=== PATIENT | female | born 1945 | race Caucasian/White ===

== ENCOUNTER → 2017-09-21 | Outpatient (CLI) | payer OTHER ==
[~2017-09-21] MED LIST: AMBIEN 5 MG TABL5 M1 PO; CYMBALTA60 MG PO; DAYPRO600 MG PO; LISINOPRIL-HCT1 EAC1 PO; MOTION RELIEF25 MG PO; NORCO 5-325 TA1 EACH PO; ZOFRAN4 MG PO
== END ==
LOC: RAD 08:57
DX: M51.36 Other intervertebral disc degeneration, lumbar region (principal); M41.86 Other forms of scoliosis, lumbar region

== ENCOUNTER → 2018-06-05 | Outpatient (CLI) | payer OTHER ==
--- NOTE | ~2018-06-05 | SLE ---
[facility] [place] [address] [address] [place] [address] POLYSOMNOGRAPHY STUDY Name: LINDSEYHEATHER Nancy Room #: REG [facility]#: [id number] Admission: 06/05/18 Attend Phys: Jose Swartz MD Discharge: Date of : 41 Report #: [id number] THIS REPORT FOR: //name// CC: Hiral Swartz MD DATE OF SERVICE: 06/05/2018 ATTENDING PHYSICIAN: Dr. Jose Swartz. The patient is a 72-year-old who weighs 254 pounds and is 62 inches tall with a BMI of 46.5. The patient's Mosquero score was 8. The patient had a home sleep study and was found to have a moderate sleep apnea at an AHI of 19.3 per hour. The patient underwent an in-lab CPAP titration study. Performed at [facility]. During the night study, the patient spent 496 minutes in bed and slept for 351 minutes with a sleep efficiency of 71%. Sleep latency was 30.7 minutes with a REM latency of 245 minutes. Overall, sleep architecture showed normal stage 1 sleep, increased stage 2 sleep, which was 95% of total sleep time. Absent N3 sleep and significantly reduced REM sleep, which was only 1% of the total sleep time. During the night of study, the patient's EKG monitoring revealed an average heart rate of 86 beats per minute. It was normal sinus rhythm. There were occasional PVCs and few bigeminy seen. There was a 13-beat run of narrow complex tachycardia observed. PLMS were seen at an index of 17 per hour and 3 per hour caused EEG arousals. The patient was started on CPAP at a pressure of 4 cm water and titrated up to 9 cm water. At the final pressure, the patient slept for 48 minutes. The patient had no REM sleep, but supine sleep was observed. The patient's AHI was reduced to 2.5 per hour and oxygen saturation remained above 90%. IMPRESSION: 1. Moderate sleep apnea diagnosed by home sleep study. 2. Mild PLMS which does not need to be treated unless the patient has symptoms of restless legs during the day. 3. Abnormal EKG with a 13-beat narrow complex tachycardia. Consider Cardiology followup. RECOMMENDATIONS: 1. CPAP at 9 cm water completely eliminated the patient's sleep apnea and should be used on a nightly basis. [facility] [address] [place] [address] POLYSOMNOGRAPHY STUDY Name: HEATHER PORTILLO Room #: REG CLE[facility]ardo [facility]cleod#: [id number] Admission: 06/05/18 Attend Phys: Jose Swartz MD Discharge: Date of : 41 Report #: [id number] 2. Follow up in 4-6 weeks to assess compliance with CPAP and to document clinical improvement. 3. Weight loss is strongly advised. 4. Avoid AOC DIRECTOR COMBAT PLANS OFFICER depressants. 5. Cautioned regarding driving until symptoms of sleep apnea resolve with the use of CPAP. 6. Cardiology followup regarding abnormal EKG. <ELECTRONICALLY SIGNED> By: Fabian Jamil MD 06/06/18 1710 1301 1322 Fabian Jamil MD /nt
== END ==
LOC: SLEEPLAB 18:16
DX: G47.30 Sleep apnea, unspecified (principal); R94.31 Abnormal electrocardiogram [ECG] [EKG]; E66.09 Other obesity due to excess calories

== ENCOUNTER → 2019-01-04 | Outpatient (CLI) | payer OTHER ==
--- NOTE | 2019-01-04 14:04 | NUR ---
1300-PT HAD A LINQ PLACEMENT TODAY BY WITHOUT ANY COMPLICATIONS OR DIFFICULTY. [facility] REP IN AND EXPLAINED HOME MONITOR TO PT AND ANSWERED ALL QUESTIONS. FOLLOW UP SCHEDULED WITH XU,VIBRATION ENGINEER IN 7-10 DAYS AND IN 4 WEEKS. PT DC'D HOME AND ALL QUESTIONS ANSWERED.
--- NOTE | 2019-01-04 15:36 | LINQ ---
[facility] [address] [place] [address] [employer] PROCEDURE REPORT Name: HEATHER PORTILLO [facility] [id number] ������������� Admission: 01/04/19 ������������� Attend Phys: Mark Santana Discharge: ��� ������������� ��� Date of : 41 Date of Service: 01/04/19 1536 �� Report #: [id number] �������� ��������������������������������������������[id number] THIS REPORT FOR: //name// APPROVED REPORT Study performed: 01/04/2019 13:38:04 Patient Status: Out-Patient Room #: Event Personnel: Mark Meier MD Exam: Loop Recorder Implant Indications: Palpitations Implanted Devices: [employer]: Confirm Rx; Reference # [id number]; SN: [id number]; Expiration: 2020-03-29 Procedure The patient underwent informed consent. We discussed the details of the procedure including the risks, which include, but not limited to bleeding, infection, vascular damage, cardiac perforation, and pneumothorax. After informed consent was obtained the patient brought to the cardiac catheterization laboratory prep and hold. The left chest was prepped and draped in usual sterile manner. Using 1% lidocaine the proposed incision site was instilled and lidocaine was carried forth throughout the proposed pocket tract. Utilizing an 11 blade a small incision was made. Status post blunt and sharp dissection a pocket was generated. At this point in time the enclosed deployment total was utilized and deployed device subcutaneously. 3 simple interrupted sutures were then placed in the subcutaneous tissue to seal the subcutaneous tissues. The skin was then closed with a running subcuticular 30 absorbable suture. Steri-Strips 4 x 4 OpSite were utilized. No complications. Conclusion 1. Successful insertion of a [employer] implantable loop recorder Recommendations 1. Routine post implantation protocol ��������������������������������������������� <ELECTRONICALLY SIGNED> ���������������������������������������� By: Mark Meier MD ��������������������������������������������� 01/04/19 1536 1536 1536 Mark Meier MD /INF
== END | disposition home or self-care (01) ==
LOC: CATH 06:22
DX: R00.2 Palpitations (principal); Z88.8 Allergy status to other drugs, medicaments and biological substances; Z79.899 Other long term (current) drug therapy; Z79.891 Long term (current) use of opiate analgesic

== ENCOUNTER → 2019-05-05 | Outpatient (CLI) | payer OTHER | LOC: MRI 09:36 | DX: M47.816 Spondylosis without myelopathy or radiculopathy, lumbar region (principal); M47.815 Spondylosis without myelopathy or radiculopathy, thoracolumbar region; M48.061 Spinal stenosis, lumbar region without neurogenic claudication; M51.26 Other intervertebral disc displacement, lumbar region; M51.27 Other intervertebral disc displacement, lumbosacral region; M51.35 Other intervertebral disc degeneration, thoracolumbar region; M51.24 Other intervertebral disc displacement, thoracic region; M51.25 Other intervertebral disc displacement, thoracolumbar region; M41.86 Other forms of scoliosis, lumbar region; E78.2 Mixed hyperlipidemia; M17.0 Bilateral primary osteoarthritis of knee; R29.898 Other symptoms and signs involving the musculoskeletal system; R20.2 Paresthesia of skin; I10 Essential (primary) hypertension; M79.604 Pain in right leg; M79.605 Pain in left leg; M48.07 Spinal stenosis, lumbosacral region; Z88.8 Allergy status to other drugs, medicaments and biological substances; Z88.2 Allergy status to sulfonamides; Z90.49 Acquired absence of other specified parts of digestive tract; Z90.710 Acquired absence of both cervix and uterus ==

== ENCOUNTER → 2019-05-17 | Outpatient (CLI) | payer OTHER ==
[~2019-05-17] VITALS: Ht 157.5 cm; Wt 127.0 kg
[~2019-05-17] MED LIST changes: +AMLODIPINE BESY10 MG PO; +DIAZEPAM 5 MG5 M1 PO; +FISH OIL 1,001000 M2 PO; +LOVASTATIN 20 M20 MG PO; +NITROGLYCERIN0.4 MG SUBLING; +OMEPRAZOLE20 M2 PO
--- NOTE | ~2019-05-17 | HPC ---
[facility] [address] [place] [address] PAIN MANAGEMENT CONSULTATION Name: LINDSEYHEATHER A Room #: REG INA Harsha#: [id number] Admission: 05/17/19 Attend Phys: Larisa Rubio MD Discharge: Date of : 43 Report #: [id number] THIS REPORT FOR: //name// CC: Hiral Rubio DATE OF SERVICE: 05/17/2019 CHIEF COMPLAINT: Pain in the back that radiates down into the right hip and low back area. HISTORY: The patient is a 73-year-old female who has been referred to the pain clinic for evaluation of back and leg pain. The patient started to note some worsening of her pain in early April. She is having pain that is radiating down her low back into the right hip. There is a burning component to it. She describes tenderness. It is scaled to be 10/10 at this juncture. Notes that the pain is exacerbated by all, pretty much everything. Activities of daily living have been significantly curtailed. Notes that the pain improves somewhat if she lies down. Over the last 2 months, she has noted worsening of her pain. Did have some problems about 20 years ago. Her fell into the flower bed. She assisted in getting him out that continue to exacerbate her discomfort. She has been trying to use Tylenol medication with no long-term benefit. She has a history of fibromyalgia. Has in the past been engaged in water aerobics. She does see a chiropractor on a weekly basis. She has not had any long-term benefit from this. Has been using ice on her back in the day. Has used ice to her back and hip area. Does feel that she has some arthritic changes in the low back as well. Feels that there is a swelling involving her right hip. She finds walking more problematic. She is unable to go to the grocery store or engage in other daily activities. Using the vacuum commercial or institutional cleaner is significantly problematic. Has been using sleeping pills to help with the pain and improve her wrist. Notes that she has increased pain when she is leaning, bending, and turning. Rates her pain as a 10/10 at this point. Feels that it is continuous, burning as well as tender. Improves when she lies down. ALLERGIES: PARAFON FORTE. CURRENT MEDICATIONS: Omeprazole 20 mg, nitroglycerin sublingual p.r.n., Mevacor 20 mg, fish oil 1000 mg, diazepam 5 mg p.r.n., anxiety/insomnia, amlodipine 10 mg, meclizine 25 mg q.8 hours motion relief, zolpidem 5 mg at bedtime, takes 10 mg; Cymbalta 60 mg, takes 90 mg; lisinopril/hydrochlorothiazide 20/12.5 daily. PAST MEDICAL HISTORY: Hypertension, joint disease, anxiety, GERD, and hypercholesterolemia. PAST SURGICAL HISTORY: Cholecystectomy in 2000, back surgery in [address]. [address] [address] PAIN MANAGEMENT CONSULTATION Name: HEATHER PORTILLO Room #: REG INA Mcleod#: [id number] Admission: 05/17/19 Attend Phys: Larisa Rubio MD Discharge: Date of : 41 Report #: [id number] SOCIAL HISTORY: She is retired. REVIEW OF SYSTEMS: Shortness of breath when lying down, palpitations, generally good health, depression. PAIN CLINIC ASSESSMENT AND PQRS: 1. History of osteoarthritis. The patient has had back surgery and has bilateral knee problems. 2. The patient is not being treated for rheumatoid arthritis. 3. Height 5 feet 2 inches, weight 280 pounds, BMI is 51.2. 4. Vital Signs: Blood pressure 167/90, pulse 99, respiratory rate 16, room air saturation 97%. 5. Pain intensity, 06/22. 6. Fall history. The patient has not fallen in the last 3 months. 7. Blood thinner. The patient is not on a blood thinning medication. 8. Hypertension. The patient is being treated for hypertension. 9. Opioids greater than 6 weeks. The patient is not on an opioid regimen. 10. Risk assessment tool, low for opioid use. 11. Functional assessment tool, . 12. Recreational drug use, the patient denies. 13. Tobacco: The patient has never smoked. 14. Alcohol. The patient denies frequent use of alcoholic beverages. PHYSICAL EXAMINATION: GENERAL: The patient is a well-developed, somewhat obese white female. Appears her stated age. She is alert and oriented x 3. Her affect is appropriate. Speech is fluent. HEENT: Normocephalic, atraumatic. Extraocular eye muscles intact. Sclerae nonicteric. Mucous membranes are moist. NECK: Without adenopathy. HEART: Regular rate. ABDOMEN: Protuberant. Bowel sounds present. EXTREMITIES: Upper extremity muscle strength judged to be 5/5 for the major muscle groups in the upper extremity. The patient without significant scoliosis, kyphosis, or lordosis. Has pain, which increases with forward bending to about 90 degrees to touch her toes. Left and right leaning cause some increased pain and discomfort in the low back area with pain down into her buttocks bilaterally. Left and right lateral rotation, lumbar extension all cause some increased pain in the low back area with pain down into the area of the buttocks. Upper extremity muscle strength judged to be 5/5 for the major muscle groups. The patient has a number of bruises on her forearms, somewhat consistent with as one would see with chronic steroid usage. Deep tendon reflexes are +2 at the biceps, absent at the ankles bilaterally, trace ankle jerks. LABORATORY DATA: MRI of the lumbar spine dated 05/05/2019, chronic low back [facility] [address] [place] [address] PAIN MANAGEMENT CONSULTATION Name: HEATHER PORTILLO Room #: [facility] [id number] Admission: 05/17/19 Attend Phys: Larisa Rubio MD Discharge: Date of : 41 Report #: [id number] pain and bilateral leg weakness. 1. At L1-L2, there is a generalized disk bulge, which is eccentric toward the right. Moderate to severe hypertrophic posterior facet degenerative changes present. The AP diameter of the thecal sac remains 10 mm. There is right greater than left mild bilateral neural foraminal narrowing. 2. L2-L3, there is a generalized disk bulge and severe hypertrophic facet degenerative changes and ligamentum flavum hypertrophy. This narrows the AP diameter of the thecal sac to 7 mm consistent with severe central spinal stenosis. There is mild bilateral neural foraminal narrowing, worse on the left as compared to the right. 3. L3-L4, there is a generalized disk bulge with severe hypertrophic posterior facet degenerative changes and ligamentum flavum hypertrophy. AP diameter of the thecal sac narrows to 9 mm consistent with mild spinal stenosis. There is mild bilateral recess narrowing, slightly worse on the left. There is mild left foraminal narrowing. 4. At L4-L5, there is generalized disk bulge and severe hypertrophic posterior facet degenerative changes. Right greater than left recess narrowing is present. The AP diameter of the thecal sac remains 10 mm. There is severe right and no left neural foraminal narrowing. 5. L5-S1. There is a generalized disk bulge with broad-based central and left paracentral disk protrusion and associated annular tear. This causes significant mass effect on the descending left S1 nerve root. The AP diameter of the thecal sac remains 13. 6. There is moderate bilateral significant disease present at L1-L2, L2-L3, L3-L4 and L5-S1. IMPRESSION: 1. Lumbar radiculopathy with L5-S1 dermatomal distribution with pain radiating down into the buttocks, left and right. 2. Coronary artery disease. 3. Hypertension. 4. Joint disease. 5. Anxiety. 6. Gastroesophageal reflux disease. 7. Hypercholesterolemia. RECOMMENDATIONS: We discussed treatment options with the patient. A model was used to indicate the area of probable pathology. The patient's MRI was reviewed. The patient does have significant pressure on the L5-S1 nerve root. She is having pain that is radiating down the L5-S1 dermatomal distribution on the right. At this point, we will proceed with an epidural steroid injection. The possible complications of the procedure were discussed. They were reviewed. They were explained. The possible complications, which could include but are not limited to infection, worsening of pain, no improvement in pain, nerve damage, bleeding were reviewed and the patient elects to proceed. The patient will return to the pain clinic at which time she will then undergo an epidural [address] [address] PAIN MANAGEMENT CONSULTATION Name: HEATHER PORTILLO Room #: REG INA M[facility]od#: [id number] Admission: 05/17/19 Attend Phys: Larisa Rubio MD Discharge: Date of : 41 Report #: [id number] steroid injection to help control the spinal stenosis symptomatology as well as lumbar radicular pain in the L5-S1 dermatomal distribution. We would like to thank you for letting us participate in her care. We hope she continues to improve. By: [id number] [id number] Larisa Rubio MD /HAI
[2019-05-17 14:24] VITALS: BP 167/90
--- NOTE | 2019-05-17 15:00 | NUR ---
Pain Clinic Assessment: 1. History of Osteoarthritis: BACK BILAT KNEES History of Rheumatoid Arthritis: 2. Height: 5 ft. 02 in. 157.5 cm. Weight: 280.0 lb. oz. 127.008 kg. Patient's BMI: 51.2 3. Vital Signs: BP: 167/90 Pulse: 99 Resp: 16 Temp: 02 Sat: 97 ECG Mon: 4. Pain Intensity: 10 5. Fall Risk: Dizziness: N Needs help standing or walking: N Fallen in the last 3 months: N Fall risk comments: 6. Patient on Blood Thinner: None 7. History of Hypertension: Y 8. Opioid Therapy greater than 6 weeks: Opiate Contract Signed: 9. Risk Assessment Tool Provided: 10. Functional Assessment Tool: 11. Recreational Drug Use: Never Drug Type: Tobacco Use: Never Smoker Tobacco Type: Amount or Packs/day: How Many Years: Alcohol Use: No Frequency: Quant:
== END ==
LOC: PAIN 06:58
DX: M54.16 Radiculopathy, lumbar region (principal); I10 Essential (primary) hypertension; F41.9 Anxiety disorder, unspecified; K21.9 Gastro-esophageal reflux disease without esophagitis; E78.00 Pure hypercholesterolemia, unspecified; I25.10 Atherosclerotic heart disease of native coronary artery without angina pectoris; Z79.899 Other long term (current) drug therapy; Z90.49 Acquired absence of other specified parts of digestive tract

== ENCOUNTER → 2019-05-26 | Outpatient (CLI) | payer OTHER ==
[~2019-05-26] VITALS: Ht 152.4 cm; Wt 119.3 kg
[~2019-05-26] MED LIST changes: +HYDROCODON-ACE1 EAC7 PO
--- NOTE | ~2019-05-26 | HPC ---
[facility] [address] [address] PAIN MANAGEMENT CONSULTATION Name: HEATHER PORTILLO Nancy Room #: REG FANIEverardo Mcleod#: [id number] Admission: 05/26/19 ������������������ Attend Phys: Larisa Rubio MD Discharge: ������������������ Date of : 41 Report #: [id number] THIS REPORT FOR: //name// CC: Hiral Rubio DATE OF SERVICE: 05/26/2019 CHIEF COMPLAINT: Pain that radiates down to the back and hip. HISTORY: The patient is a 73-year-old female who has been referred to the Pain Clinic for evaluation. The patient has a history of pain in the low back area. It radiates down into her leg. She has noticed worsening of her pain since 04/2019. She has a burning component. Rates it as a 10/10 at this point. Activities of daily living have increased her discomfort. Pain improves when she lies down. Pain is worsened with other activities. Did have some similar problems about 20 years ago. Recently, her fell in a flower bed. She is assisted in getting on the flower bed. After that, she noted some increased pain and discomfort. She also has a history of fibromyalgia. She has in the past undergone chiropractic treatment. Has used some water aerobics. Does have some arthritic changes in her low back. She has returned today for an epidural steroid injection. ALLERGIES: PARAFON FORTE. CURRENT MEDICATIONS: Omeprazole 20 mg, nitroglycerin sublingual p.r.n., Mevacor 20 mg, fish oil 1000 mg, diltiazem 5 mg, anxiety/insomnia, amlodipine 10 mg, meclizine 25 mg q. 8 hours p.r.n., zolpidem 5 mg at bedtime, 10 mg total was taken, Cymbalta 60 mg, takes 90 mg total, lisinopril/hydrochlorothiazide 20/12.5 daily. PAIN CLINIC ASSESSMENT/PQRS: 1. The patient has a history of osteoarthritis. She has had back surgery and has had bilateral knee replacements. She is not being treated for rheumatoid arthritis. 2. Height 5 feet 0 inches, weight 263 pounds, BMI is 51.4. 3. Vital Signs: Blood pressure 110/84, pulse 110, respiratory rate 18, room air saturation 98%. 4. Pain intensity, 06/22. 5. Fall history: The patient has not fallen since we saw her last. 6. Blood thinner. The patient is not on a blood thinning medication. 7. Hypertension. The patient is being treated for hypertension. 8. Opioids greater than 6 weeks. The patient receives medications from her primary physician. 9. Risk assessment tool, low for opioid use. 10. Functional assessment tool, . [address] [address] PAIN MANAGEMENT CONSULTATION Name: HEATHER PORTILLO [facility] [id number] Admission: 05/26/19 ������������������ Attend Phys: Larisa Rubio MD Discharge: ������������������ Date of : 41 Report #: [id number] 11. Recreational drug use. The patient denies. 12. Tobacco: The patient has never smoked. 13. Alcohol. The patient denies frequent alcohol use. PHYSICAL EXAMINATION: GENERAL: The patient is a well-developed, well-nourished, obese white female, appears her stated age. She is alert and oriented x 3. Her affect is appropriate. Speech is fluent. HEENT: Normocephalic, atraumatic. Extraocular eye muscles intact. Sclerae nonicteric. Mucous membranes are moist. NECK: Without adenopathy or JVD. HEART: Regular rate. ABDOMEN: Protuberant. Bowel sounds present. EXTREMITIES: Upper extremity muscle strength judged to be 5/5 for the major muscle groups in the upper extremity. The patient is without significant scoliosis, kyphosis or lordosis. The patient has forward lean with walking. Lower extremity muscle strength judged to be 5/5 for the major muscle groups in the lower extremity. The patient has a number of bruises on her forearm. They seem somewhat consistent with chronic steroid use. Deep tendon reflexes +2 in biceps. 1. Lumbar radiculopathy with L5-S1 dermatomal distribution of pain radiating down to the buttocks, left as well as right leg. 2. Coronary artery disease. 3. Hypertension. 4. Joint disease. 5. Anxiety. 6. Gastroesophageal reflux. 7. Hypercholesterolemia. RECOMMENDATIONS: We discussed treatment options with the patient. Risks and benefits of an epidural steroid injection were discussed. They include but are not limited to infection, worsening pain, no improvement in pain, nerve trauma and the patient elects to proceed. PROCEDURE NOTE: The patient was taken to the procedure area. She was then assisted in getting on examination table. Her back was sterilely prepped with a Betadine solution. A 0.25% bupivacaine was infiltrated in the midline at the L5-S1 interspace. This area had been sterilely prepped with Betadine. A 25-gauge needle was then used to infiltrate this area with 0.25% bupivacaine. After the area had been anesthetized, fluoroscopy using an anterior, posterior as well as lateral viewing were implemented. A 17-gauge Tuohy was advanced to the epidural space. There was no CSF, heme or paresthesia. Total of 80 mg Depo-Medrol, 40 mg triamcinolone and 2 mL of 0.25% bupivacaine was injected. The patient's pain decreased from 10-1 at the time of discharge. Total of about 30 seconds fluoroscopy time was used. [facility] [address] [address] PAIN MANAGEMENT CONSULTATION Name: HEATHER PORTILLO Room #: REG [facility]#: [id number] Admission: 05/26/19 ������������������ Attend Phys: Larisa Rubio MD Discharge: ������������������ Date of : 41 Report #: [id number] We would like to thank you for letting us participate in her care. We hope she continues to improve. ��������������������������������������������� ���������������������������������������� By: ��������������������������������������������� 1345 1729 Larisa Rubio MD /nt
[2019-05-26 12:45] VITALS: BP 110/84
--- NOTE | 2019-05-26 12:49 | NUR ---
Pain Clinic Assessment: 1. History of Osteoarthritis: BACK BILAT KNEES History of Rheumatoid Arthritis: Not Applicable 2. Height: 5 ft. 0 in. 152.4 cm. Weight: 263.0 lb. oz. 119.296 kg. Patient's BMI: 51.4 3. Vital Signs: BP: 110/84 Pulse: 110 Resp: 18 Temp: 02 Sat: 98 ECG Mon: 4. Pain Intensity: 10 5. Fall Risk: Dizziness: N Needs help standing or walking: N Fallen in the last 3 months: N Fall risk comments: 6. Patient on Blood Thinner: None 7. History of Hypertension: Y 8. Opioid Therapy greater than 6 weeks: Opiate Contract Signed: 9. Risk Assessment Tool Provided: LOW-1 10. Functional Assessment Tool: 11. Recreational Drug Use: Never Drug Type: Tobacco Use: Never Smoker Tobacco Type: Amount or Packs/day: How Many Years: Alcohol Use: No Frequency: Quant:
== END | disposition home or self-care (01) ==
LOC: PAIN 06:49
DX: M54.16 Radiculopathy, lumbar region (principal); G89.29 Other chronic pain; Z88.8 Allergy status to other drugs, medicaments and biological substances; Z79.899 Other long term (current) drug therapy

== ENCOUNTER → 2019-06-28 | Outpatient (CLI) | payer OTHER ==
[~2019-06-28] VITALS: Ht 157.5 cm; Wt 121.0 kg
[~2019-06-28] MED LIST changes: +DOXEPIN 10 MG C10 M1 PO; +MAG-OXIDE400 MG PO; +MAGNESIUM250 M1 PO; +VALIUM2 MG PO
[2019-06-28 12:51] VITALS: BP 173/4
--- NOTE | 2019-06-28 13:11 | NUR ---
Pain Clinic Assessment: 1. History of Osteoarthritis: BACK BILAT KNEES History of Rheumatoid Arthritis: Not Applicable 2. Height: 5 ft. 2 in. 157.5 cm. Weight: 266.8 lb. oz. 121.020 kg. Patient's BMI: 48.8 3. Vital Signs: BP: 173/4 Pulse: 116 Resp: 20 Temp: 02 Sat: 99 ECG Mon: 4. Pain Intensity: 8 5. Fall Risk: Dizziness: N Needs help standing or walking: N Fallen in the last 3 months: N Fall risk comments: 6. Patient on Blood Thinner: None 7. History of Hypertension: Y 8. Opioid Therapy greater than 6 weeks: N Opiate Contract Signed: 9. Risk Assessment Tool Provided: LOW-1 10. Functional Assessment Tool: 11. Recreational Drug Use: Never Drug Type: Tobacco Use: Never Smoker Tobacco Type: Amount or Packs/day: How Many Years: Alcohol Use: No Frequency: Quant:
--- NOTE | 2019-07-21 08:14 | HPC ---
[facility] [address] [place] [address] PAIN MANAGEMENT CONSULTATION Name: HEATHER PORTILLO Nancy Room #: REG INA Harsha#: [id number] Admission: 06/28/19 Attend Phys: Larisa Rubio MD Discharge: Date of : 43 Report #: [id number] THIS REPORT FOR: //name// CC: Hiral Rubio DATE OF SERVICE: 06/28/2019 CHIEF COMPLAINT: Low back that is going down into both legs. HISTORY: The patient is a 73-year-old female who has been seen in the pain clinic. She has had problems with her pain since 04/2019. She complains of some pain that radiates down into her right leg and into her foot. Also, she has pain in the left leg, but the discomfort stops at her knee. She feels that because of some of the numbness and unsteadiness in her gait. She underwent an epidural steroid injection at the last visit. She returns today and feels that her pain continues to be problematic in spite of having undergone an epidural injection. Rates her pain as an 8/10. As you may recall, her fell in the floor bed. Pain worsened after her assisting him and pulling him to help get him out of the floor bed. She has a history of fibromyalgia. She has undergone chiropractic treatments. ALLERGIES: PARAFON FORTE. CURRENT MEDICATIONS: Omeprazole 20 mg, nitroglycerin sublingual p.r.n., Mevacor 20 mg, fish oil 1000 mg, diltiazem 5 mg, anxiety/insomnia; amlodipine 10 mg, meclizine 25 mg q. 8 hours, zolpidem 5 mg at bedtime, 10 mg total, Cymbalta 90 mg total and lisinopril/hydrochlorothiazide 20/12.5 mg daily. PAIN CLINIC ASSESSMENT AND PQRS: 1. The patient has a history of osteoarthritis. She has had back surgery and has had bilateral knee replacements. She is not being treated for rheumatoid arthritis. 2. Height 5 feet 8 inches, weight 266 pounds, BMI is 48.8. 3. Vital Signs: Blood pressure 173/74, heart rate 114, respiratory rate 20, room air saturation is 99%. 4. Pain intensity 04/22. 5. Fall history: The patient has not fallen in the last 3 months. 6. Blood thinner. The patient is not on a blood thinning medication. 7. Hypertension. The patient is being treated for hypertension. 8. Opioids greater than 6 weeks. The patient received medication from her primary physician. 9. Risk assessment tool, low for opioid use. 10. Functional assessment tool . 11. Recreational drug use. The patient denies. 12. Tobacco: The patient has never smoked. [address] [address] PAIN MANAGEMENT CONSULTATION Name: HEATHER PORTILLO Room #: REG CLI Harsha#: [id number] Admission: 06/28/19 Attend Phys: Larisa Rubio MD Discharge: Date of : 43 Report #: [id number] 13. Alcohol. The patient denies frequent use of alcoholic beverages. PHYSICAL EXAMINATION: GENERAL: The patient is a well-developed, well-nourished, obese white female, appears her stated age. She is alert and oriented x 3. Her affect is appropriate. Speech is fluent. HEENT: Normocephalic, atraumatic. Extraocular eye muscles intact. Sclerae nonicteric. Mucous membranes are moist. NECK: Without adenopathy or JVD. HEART: Regular rate. ABDOMEN: Protuberant. Bowel sounds present. EXTREMITIES: Upper extremity muscle strength judged to be 5/5 for the major muscle groups in the upper extremity. The patient without significant scoliosis, kyphosis or lordosis. The patient lower extremity muscle strength judged to be 5-/5 for the major muscle groups in the lower extremity. She has low back pain with pain that radiates down into both legs. This pain is in the L5-S1 dermatomal distribution on the left side as well as pain in the right leg. IMPRESSION: 1. Lumbar radiculopathy with L5-S1 dermatomal distribution with pain radiating down into the buttocks, left as well as the right leg. 2. Coronary artery disease. 3. Hypertension. 4. Joint disease. 5. Anxiety. 6. Gastroesophageal reflux. 7. Hypercholesterolemia. RECOMMENDATIONS: We discussed the treatment options with the patient. The patient feels that she got less than 50% improvement after the last injection. She continues to note pain and discomfort in the low back area. She has history of fibromyalgia. Has pain in the low back down into her hips. She has some perception of swelling in her right hip. We explained to the patient that another epidural steroid injection could prove beneficial. At this point, she declines another injection and may consider one in the future. We will have the patient follow up with her primary physician. We would like to thank you for letting us participate in her care. We hope she continues to improve. <ELECTRONICALLY SIGNED> By: Larisa Rubio MD 07/21/19 0814 1639 1653 Larisa Rubio MD /nt
== END ==
LOC: PAIN 07:13
DX: M54.16 Radiculopathy, lumbar region (principal); I25.10 Atherosclerotic heart disease of native coronary artery without angina pectoris; I10 Essential (primary) hypertension; F41.9 Anxiety disorder, unspecified; K21.9 Gastro-esophageal reflux disease without esophagitis; E78.00 Pure hypercholesterolemia, unspecified

== ENCOUNTER 2019-07-27 08:19 | Emergency (ER) | payer OTHER ==
[~2019-07-27] VITALS: Ht 152.4 cm; Wt 113.4 kg
[~2019-07-27 08:19] MED LIST changes: -DOXEPIN 10 MG C10 M1 PO; -MAG-OXIDE400 MG PO; -MAGNESIUM250 M1 PO; -VALIUM2 MG PO
[2019-07-27 08:51] LABS: HEMATOCRIT 44.5 % (37.0-47.0); HEMOGLOBIN 14.9 gm/dL (12.0-15.0); MCH 31.3 pg (26.0-34.0); MCHC 33.6 g/dL (28.0-37.0); MCV 93.3 fL (80.0-100.0); RBC 4.77 mil/uL (4.20-5.00); RDW 14.4 % (10.5-14.5); WBC 14.4 thou/uL (4.0-11.0)
[2019-07-27 09:00] LABS: ANION GAP 16 mmol/L (7-16); BUN 14 mg/dL (7-18); CHLORIDE 101 mmol/L (98-107); CO2 20 mmol/L (21-32); CREATININE 0.9 mg/dL (0.6-1.0); GLUCOSE 215 mg/dL (74-106); SODIUM 137 mmol/L (136-145)
[2019-07-27 09:01] LABS: POTASSIUM 3.6 mmol/L (3.5-5.1)
[2019-07-27 09:07] LABS: D-DIMER 1.08 ug/mLFEU (0.19-0.50); PROTIME 9.9 Seconds (9.3-11.4)
[2019-07-27 09:10] LABS: ALBUMIN 3.6 g/dL (3.4-5.0); MAGNESIUM 1.4 mg/dL (1.8-2.4); SGOT 34 U/L (15-37); SGPT 29 U/L (30-65); TOTAL BILIRUBIN 0.7 mg/dL (<0.1-1.0); TOTAL PROTEIN 6.4 g/dL (6.4-8.2); TROPONIN-I <0.06 ng/mL (<0.06)
[2019-07-27 09:41] LABS: ABSOLUTE NEUTROPHILS 8.9 thou/uL (1.4-8.2); PLATELET COUNT 294 thou/uL (150-400); PLATELET ESTIMATE NORMAL
[2019-07-27] MEDS ORDERED: DOXEPIN 10 MG C10 M1 PO (09:44)
[2019-07-27] MEDS ORDERED: MAGNESIUM250 M1 PO (10:00)
[2019-07-27 10:48] LABS: URINE BILIRUBIN NEGATIVE (Negative); URINE BLOOD NEGATIVE (Negative); URINE CLARITY CLEAR; URINE COLOR YELLOW; URINE GLUCOSE-RANDOM* NEGATIVE (Negative); URINE KETONES NEGATIVE (Negative); URINE LEUKOCYTES-REFLEX NEGATIVE (Negative); URINE NITRITE-REFLEX NEGATIVE (Negative); URINE PROTEIN (DIPSTICK) NEGATIVE (Negative); URINE UROBILINOGEN 0.2 E.U./dl (0.2-1.0)
[2019-07-27] MEDS ORDERED: MAG-OXIDE400 MG PO (10:50)
[2019-07-27] MEDS ORDERED: VALIUM2 MG PO (10:50)
[2019-07-27 10:59] LABS: AMP/METHAMP Negative (Negative); BARBITURATES Negative (Negative); BENZODIAZEPINES POSITIVE (Negative); COCAINE Negative (Negative); METHADONE Negative (Negative); OPIATES Negative (Negative); PCP Negative (Negative)
[2019-07-27 11:06] VITALS: BP 119/74
--- NOTE | 2019-07-27 17:17 | EKG ---
[place] [address] [employer] 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 : 1945 Requested By: Kirby Gastelum Order Number: [id number] MD: Da Carbajal Measurements Intervals [place] Rate: 115 P: 56 TN: 153 QRS: -43 QRSD: 91 T: 45 QT: 337 QTc: 466 Interpretive Statements Sinus tachycardia Paired ventricular premature complexes Left axis deviation Poor R wave progression Compared to ECG 05/11/2008 12:38:19 [place] has shifted leftward Electronically Signed On 07-27-2019 17:17:41 LABEL MACHINE OPERATOR by Da Carbajal [email or web address] <ELECTRONICALLY SIGNED> By: Da Carbajal MD, [facility] 07/27/19 1717 8 8 Da Carbajal MD, [facility] /EPI
== END 2019-07-27 11:06 | disposition home or self-care (01) ==
LOC: ER 08:19
PROVIDERS: Emergency Medicine
DX: H81.12 Benign paroxysmal vertigo, left ear (principal); E83.42 Hypomagnesemia; R00.0 Tachycardia, unspecified; Z90.49 Acquired absence of other specified parts of digestive tract; Z88.2 Allergy status to sulfonamides; Z88.8 Allergy status to other drugs, medicaments and biological substances

== ENCOUNTER → 2019-09-18 | Outpatient (CLI) | payer OTHER ==
[~2019-09-18] MED LIST changes: +DOXEPIN 10 MG C10 M1 PO; +MAG-OXIDE400 MG PO; +MAGNESIUM250 M1 PO; +VALIUM2 MG PO
--- NOTE | 2019-09-21 07:09 | PATH ---
[facility] [place] [address] PATHOLOGY RPT PROCEDURE Name: HEATHER PORTILLO Room #: REG [facility]#: [id number] Admission: 09/18/19 Date of : 41 Discharge: Report #: [id number] Path Case #: [id number] Note L[facility] Accession Number: [id number] TESTS RESULT FLAG UNITS REF RANGE LAB Clinician Provided Cytology Information No. of containers..01 Other (Miscellaneous) Source: RIGHT THYROID DIAGNOSIS: RIGHT THYROID NEGATIVE FOR MALIGNANT CELLS. BETHESDA CATEGORY II. SPECIMEN CONSISTS OF ABUNDANT BENIGN FOLLICULAR CELLS, HEMOSIDERIN-LADEN MACROPHAGES, SCANT COLLOID AND BLOOD. THE PATTERN IS CONSISTENT WITH ADENOMATOID NODULE. THIS INTERPRETATION INCLUDES EVALUATION OF A CELL BLOCK. COMMEN, THIS CASE WAS ALSO REVIEWED BY DR. MARY ORDONEZ WHO AGREES WITH THE ABOVE DIAGNOSIS. THE MATERIAL ASPIRATED MAY NOT BE ACIDIZER. SUGGEST CLINICAL CORRELATION. Pathologist ICD10: 02 E04.1 Signed out by: 02 Griffin Lyn MD, Pathologist NPI- [id number] Performed by: 01 Rosalind Diaz, Parachute Accessories Attacher ([facility]) Gross description: 01 20ML, RED, /LCS 09/18/20191920 Local FLAG LEGEND: L-Low Normal,H-High Normal,LL-Alert Low,HH-Alert High <-Panic Low,>-Panic High,A-Abnormal,AA-Critical Abnormal Performed at: 01 [place] [facility] [address] [facility] [address] [place] [address] Darrin Mcgowan MD, 02 [facility] [facility] [address] [address] Delmar Anand MD, Specimen Comment: A courtesy copy of this report has been sent to [phone], [phone] Specimen Comment: [phone] [address] PATHOLOGY RPT PROCEDURE Name: HEATHER PORTILLO Room #: REG INA Mcleod#: [id number] Admission: 09/18/19 Date of : 43 Discharge: Report #: [id number] Path Case #: [id number] Specimen Comment: Report sent to / DR PERALTA Performed at: 01 [facility] [address] [facility] [address], [place], [place] [id number] MD Darrin Mcgowan MD Phone: [phone]
--- NOTE | 2019-09-21 07:09 | PATH ---
[facility] [place] [address] [place] [address] PATHOLOGY RPT PROCEDURE Name: HEATHER PORTILLO Room #: REG [facility]#: [id number] Admission: 09/18/19 Date of : 43 Discharge: Report #: [id number] Path Case #: [id number] Note [facility] Accession Number: [id number] TESTS RESULT FLAG UNITS REF RANGE LAB Clinician Provided Cytology Information No. of containers..01 Other (Miscellaneous) Source: LEFT THYROID DIAGNOSIS: LEFT THYROID NEGATIVE FOR MALIGNANT CELLS. BETHESDA CATEGORY II. SPECIMEN CONSISTS OF ABUNDANT BENIGN FOLLICULAR CELLS, HEMOSIDERIN-LADEN MACROPHAGES, SCANT COLLOID AND BLOOD. THE PATTERN IS CONSISTENT WITH ADENOMATOID NODULE. COLLOID IS PRESENT. THIS INTERPRETATION INCLUDES EVALUATION OF A CELL BLOCK. COMMENT, THIS CASE WAS ALSO REVIEWED BY DR. MARY ORDONEZ WHO AGREES WITH THE ABOVE DIAGNOSIS. THE MATERIAL ASPIRATED MAY NOT BE CHAIN BUILDER LOOM CONTROL. Pathologist ICD10: 02 E04.1 Signed out by: 02 Griffin Lyn MD, Pathologist NPI- [id number] Performed by: 01 Rosalind Diaz, Truck Hop ([facility]) Gross description: 01 20ML, RED, /LCS 09/18/2019 1924 Local FLAG LEGEND: L-Low Normal,H-High Normal,LL-Alert Low,HH-Alert High <-Panic Low,>-Panic High,A-Abnormal,AA-Critical Abnormal Performed at: [address] [place] [address] Darrin Mcgowan MD, [address] [address] Delmar Anand MD, Performed at: [address], [place] [id number] [place] [address] PATHOLOGY RPT PROCEDURE Name: HEATHER PORTILLO Room #: REG INA Mcleod#: [id number] Admission: 09/18/19 Date of : 43 Discharge: Report #: [id number] Path Case #: [id number] MD Darrin Mcgowan MD Phone: [phone]
== END | disposition home or self-care (01) ==
LOC: ULTRA 09:15
DX: E04.1 Nontoxic single thyroid nodule (principal); Z98.890 Other specified postprocedural states; Z88.2 Allergy status to sulfonamides; Z88.8 Allergy status to other drugs, medicaments and biological substances; Z79.899 Other long term (current) drug therapy

== ENCOUNTER 2020-10-05 19:28 | Inpatient (IN) | payer OTHER ==
[~2020-10-05] VITALS: Ht 152.4 cm; Wt 109.3 kg
[2020-10-05 19:29] VITALS: BP 132/51
[2020-10-05 20:08] LABS: ABSOLUTE NEUTROPHILS 8.8 thou/uL (1.4-8.2); BASOPHILS 1.1 % (0.0-2.0); EOSINOPHILS 3.2 % (0.0-3.0); HEMOGLOBIN 15.4 gm/dL (12.0-15.0); LYMPHOCYTES 18.6 % (24.0-44.0); MCH 29.3 pg (26.0-34.0); MCHC 32.8 g/dL (28.0-37.0); MCV 89.4 fL (80.0-100.0); MONOCYTES 9.6 % (1.0-8.0); PLATELET COUNT 329 thou/uL (150-400); POLYS 67.5 % (36.0-66.0); RBC 5.26 mil/uL (4.20-5.00); RDW 15.8 % (10.5-14.5)
[2020-10-05 20:21] LABS: APTT 25.6 Seconds (24.5-32.8); D-DIMER 0.89 ug/mLFEU (0.19-0.50); INR 1.1; PROTIME 10.8 Seconds (9.3-11.4)
[2020-10-05 20:32] LABS: ANION GAP 9 mmol/L (7-16); BUN 29 mg/dL (7-18); CALCIUM 9.7 mg/dL (8.5-10.1); CHLORIDE 105 mmol/L (98-107); CO2 29 mmol/L (21-32); CREATININE 1.4 mg/dL (0.6-1.0); GLUCOSE 142 mg/dL (74-106); POTASSIUM 3.7 mmol/L (3.5-5.1); SODIUM 143 mmol/L (136-145)
[2020-10-05 20:37] LABS: ALBUMIN 3.7 g/dL (3.4-5.0); SGOT 25 U/L (15-37); SGPT 26 U/L (14-59); TOTAL BILIRUBIN 0.7 mg/dL (0.2-1.0); TOTAL PROTEIN 6.7 g/dL (6.4-8.2); TROPONIN-I <0.06 ng/mL (<0.06)
[2020-10-05 22:12] VITALS: BP 110/26
[2020-10-05 22:23] VITALS: BP 110/48
[2020-10-05 23:14] LABS: CHOLESTEROL 162 mg/dL (<200); HDL CHOLESTEROL 45 mg/dL (>40); LDL CHOLESTEROL 87 mg/dL (<100); TC:HDL 3.6 Ratio (Not establshd); TRIGLYCERIDE 151 mg/dL (<150); VLDL 30 mg/dL (<40)
[2020-10-05 23:26] LABS: SERUM ASSESSMENT Clear
[2020-10-05 23:40] VITALS: BP 149/81
[2020-10-06] VITALS (8 sets, daily range): BP systolic 117–156; BP diastolic 67–98
--- NOTE | 2020-10-06 01:07 | NUR ---
PT ADMITTED TO THE FLOOR FROM ER AT AROUND 2335, PT IS AWAKE ALERT AND ORIENTEDX4, SR ON THE MONITOR, HEPARIN AND FLUIDS INITIATED PER ORDER, DENIES CHEST PAIN OR SOB, ADMISSION ASSESSMENT COMPLETED AND DOCUMENTED, VSS, DENIES HAVING CONCERNS AT THIS TIME, WILL CONTINUE TO MONITOR AND FOLLOW POC
[2020-10-06 07:11] LABS: HEMATOCRIT 43.4 % (37.0-47.0); HEMOGLOBIN 14.1 gm/dL (12.0-15.0); MCH 29.1 pg (26.0-34.0); MCHC 32.5 g/dL (28.0-37.0); MCV 89.6 fL (80.0-100.0); RBC 4.84 mil/uL (4.20-5.00); RDW 15.6 % (10.5-14.5); WBC 10.8 thou/uL (4.0-11.0)
[2020-10-06 07:30] LABS: CALCIUM 9.6 mg/dL (8.5-10.1); CREATININE 1.3 mg/dL (0.6-1.0); MAGNESIUM 1.9 mg/dL (1.8-2.4); POTASSIUM 3.5 mmol/L (3.5-5.1); TROPONIN-I 0.14 ng/mL (<0.06)
--- NOTE | 2020-10-06 20:46 | NUR ---
PT CARE ASSUMED AT 0700. ASSESSMENTS CHARTED. MEDICATIONS CHARTED. RAC IV. SINUS RHYTHM. NPO AFTER 0000. TOILET. HEPARIN DRIP. LAST APTT 38.2. 8 U/KG/HR.
[2020-10-07 03:22] LABS: HEMATOCRIT 40.8 % (37.0-47.0); HEMOGLOBIN 13.5 gm/dL (12.0-15.0); MCH 29.4 pg (26.0-34.0); MCHC 33.2 g/dL (28.0-37.0); MCV 88.7 fL (80.0-100.0); RBC 4.6 mil/uL (4.20-5.00); RDW 15.2 % (10.5-14.5); WBC 8.2 thou/uL (4.0-11.0)
[2020-10-07 04:00] VITALS: BP 178/84
[2020-10-07 06:56] VITALS: BP 158/85
[2020-10-07 10:27] LABS: CALCIUM 9.3 mg/dL (8.5-10.1); POTASSIUM 3.2 mmol/L (3.5-5.1)
--- NOTE | 2020-10-07 10:34 | EKG ---
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 Leveler: penny lockwood : 1945 Requested By: Duran Desir Order Number: [id number] MD: Pedrito Soares Measurements Intervals [place] Rate: 146 P: [place]: QRS: -30 QRSD: 116 T: 38 QT: 309 QTc: 482 Interpretive Statements Supraventricular tachycardia Nonspecific intraventricular conduction delay Compared to ECG 07/27/2019 08:29:42 Intraventricular conduction delay now present Sinus tachycardia no longer present Ventricular premature complex(es) no longer present Left-axis deviation no longer present Poor R-wave progression no longer present Electronically Signed On 10-07-2020 10:34:17 RESTAURANT AND BAR MANAGER by Pedrito Soares [email or web address] <ELECTRONICALLY SIGNED> By: Pedrito Soares MD, FAC 10/07/20 1034 41 41 Pedrito Soares MD, [facility] /EPI
[2020-10-07 11:15] VITALS: BP 150/91
--- NOTE | 2020-10-07 15:27 | EKG ---
[address] [address] ELECTROCARDIOGRAM REPORT Name: HEATHER PORTILLO Room #: 219- ADM IN M.R.#: [id number] Admission: 10/05/20 Attend Phys: Jean Lozada MD Discharge: Date of : 43 Report #: [id number] [facility] ED Test Date: 2020-10-05 Test Time: 20:17:04 Pat Name: HEATHER PORTILLO Department: Room: 219 Gender: F Fine Arts Model: loi : 1945 Requested By: Duran Desir Order Number: [id number] MD: Gómez Mcpherson Measurements Intervals [place] Rate: 66 P: 25 [place]: 171 QRS: -19 QRSD: 110 T: 32 QT: 441 QTc: 463 Interpretive Statements Sinus rhythm Borderline left axis deviation Low voltage, precordial leads Abnormal R-wave progression, early transition Artifact in lead(s) I,V1,V2,V3,V4,V5,V6 Electronically Signed On 10-07-2020 15:27:28 A P SUPERVISOR by Gómez Mcpherson [email or web address] <ELECTRONICALLY SIGNED> By: Gómez Mcpherson MD 10/07/20 1527 16 16 Gómez Mcpherson MD /EPI
--- NOTE | 2020-10-07 15:56 | HC ---
[facility] [place] [address] CONSULTATION Name: HEATHER PORTILLO Room #: 219-P ADM IN M.R.#: [id number] Admission: 10/05/20 Attend Phys: Jean Lozada MD Discharge: Date of : 43 Report #: [id number] THIS REPORT FOR: cc: Hiral Bateman DNP, Mary E. DNP Couchonnal, Luis F. MD ~ DATE OF SERVICE: 10/06/2020 CARDIOLOGY CONSULTATION REASON FOR CONSULTATION: Chest pain. HISTORY OF PRESENT ILLNESS: The patient is a 74-year-old female follows with Dr. Meier for hypertension, anxiety, palpitations, possible TIA in the past. Last echo was in 05/2018 showing EF 55-60%. I do not see any recent stress tests. Also, has a history of fibromyalgia, obesity, obstructive sleep apnea. She presents with episode of chest heaviness radiating to the left arm. When she presented to the ER, she was in an atrial tachycardia with small P waves preceding the QRS complex that terminated with some diltiazem. She is currently chest pain free. She denies any PND or orthopnea. She denies presyncope or syncope. REVIEW OF SYSTEMS: A 12-point review of systems was negative other than what I mentioned above. PAST MEDICAL HISTORY: As above. SOCIAL HISTORY: Does not smoke. FAMILY HISTORY: Significant for heart disease. ALLERGIES: Have been reviewed. MEDICATIONS: Have been reviewed. PHYSICAL EXAMINATION: VITAL SIGNS: Temperature 36.7, pulse 96, respiration 16, blood pressure 143/81, sats 98%. GENERAL: No acute distress. HEENT: Oropharynx is clear. Mucous membranes are moist. NECK: Supple, with no thyromegaly. HEART: Regular rate and rhythm with no murmurs, rubs or gallops with no elevated JVD. LUNGS: Clear bilaterally. ABDOMEN: Soft, nontender, nondistended with no hepatosplenomegaly. [facility] [address] [place] [address] CONSULTATION Name: HEATHER PORTILLO Room #: [address] [place] [address] [place] [facility].#: [id number] Admission: 10/05/20 Attend Phys: Jean Lozada MD Discharge: Date of : 43 Report #: [id number] EXTREMITIES: There is no clubbing, cyanosis or edema. NEUROLOGIC: Cranial nerves 2-12 are intact. Peripheral pulses are 2+ throughout. LABORATORY DATA: Hemoglobin 14, white count 10, platelet 267, potassium 3.5, creatinine 1.3. Troponin max 0.14. ProBNP 278. Chest x-ray, no acute process. CT chest, no acute process. EKG, atrial tachycardia, no ischemic changes. ASSESSMENT AND PLAN: 1. Supraventricular tachycardia. 2. Atrial tachycardia. 3. Elevated troponin. 4. Hypertension. 5. Prior transient ischemic attack. PLAN: The patient 74-year-old with history of hypertension, prior TIA, presenting with an atrial tachycardia that terminated with diltiazem. She is currently in sinus rhythm. We will initiate Multaq therapy to prevent further arrhythmias. With regards to her elevated troponin, I have recommended and discussed with Dr. Meier that she should proceed with diagnostic cardiac catheterization. We discussed the details of the procedure including the risks, which include but not limited to bleeding, vascular damage, stroke and CT. She understands these risks and is willing to proceed. She will be n.p.o. after midnight and proceed with catheterization tomorrow. <ELECTRONICALLY SIGNED> By: Gómez Mcpherson MD 10/07/20 1556 1112 1216 Gómez Mcpherson MD /nt
--- NOTE | 2020-10-07 16:29 | NUR ---
AAOX4. CALM, COOPERATIVE. ECHO AND CARDIAC CATH TODAY, NO INTERVENTION. SR PER TELE. DENIES CP, SOA. HEPARIN DRIP DISCONTINUED ORDERED. FALL PRECAUTIONS IN PLACE.
[2020-10-07 16:55] VITALS: BP 143/69
--- NOTE | 2020-10-07 17:10 | 2DMMODE ---
[facility] [place] [address] [place] [address] 2 D/M-MODE ECHOCARDIOGRAM Name: HEATHER PORTILLO Room #: 219-P ADM IN .R.#: [id number] Admission: 10/05/20 Attend Phys: Jean Lozada MD Discharge: Date of : 43 Report #: [id number] THIS REPORT FOR: cc: Hiral Bateman DNP, Mary E. DNP Lammoglia, Francisco J. MD ~ APPROVED REPORT Study performed: 10/07/2020 08:49:39 EXAM: Comprehensive 2D, Doppler, and color-flow Echocardiogram BSA: 2.02 2D Dimensions IVSd: 10.44 (7-11mm) LVOT Diam: 22.91 (18-24mm) LVDd: 36.15 mm PWd: 12.47 (7-11mm) Ascending Ao: 32.80 (22-36mm) LVDs: 24.90 (25-40mm) Left Atrium: 37.44 (27-40mm) Aortic Root: 28.59 mm Volumes Left Atrial Volume (Systole) Single Plane 4CH: 43.31 mL Single Plane 2CH: 34.42 mL Aortic Valve AoV Peak Jordan.: 1.56 m/s AO Peak Gr.: 9.80 mmHg LVOT Max P.37 mmHg LVOT Max V: 0.77 m/s LIONEL Vmax: 2.03 cm2 AI Vmax: 4.55 m/s AI Lynn: 4.40 m/s2 AI PHT: 299.77 ms Mitral Valve MV Peak Gr.: 13.53 mmHg MV Mean Gr.: 5.78 mmHg MV Max Jordan.: 1.84 m/s MV Mean Jordan.: 1.06 m/s MV VTI: 277.63 mm Pulmonary Valve [facility] [address] [place] [address] 2 D/M-MODE ECHOCARDIOGRAM Name: PORTILLOHEATHER Room #: 219-[facility] IN [facility]#: [id number] Admission: 10/05/20 Attend Phys: Jean Lozada MD Discharge: Date of : 43 Report #: [id number] PV Peak Jordan.: 1.09 m/s PV Peak Gr.: 4.79 mmHg Pulmonary Vein P Vein S: 0.33 m/s P Vein A: 0.43 m/s P Vein D: 0.10 m/s P Vein A Dur.: 106.1 msec P Vein S/D Ratio: 3.30 Tricuspid Valve TR Peak Jordan.: 2.48 m/s TR Peak Gr.: 24.68 mmHg Left Ventricle Left ventricle is grossly normal size. Regional wall motion is normal. Mild concentric left ventricular hypertrophy. Left ventricular systolic function is normal. LVEF is 55-60%. Right Ventricle Right ventricle is grossly normal in size. Right ventricular systolic function is grossly normal. Atria Left atrium is at the upper limits of normal. Right atrium size is normal. Aortic Valve The Aortic valve is sclerotic. Mild aortic regurgitation. No hemodynamically significant valvular aortic stenosis. Mitral Valve There is mitral annular calcification. Mild to moderate mitral regurgitation. Tricuspid Valve Tricuspid valve is not well visualized. Mild to moderate tricuspid regurgitation. Pulmonic Valve Pulmonic valve is not well visualized. Great Vessels Aortic root is normal in size. Ascending aorta is normal in caliber. Pericardium No pericardial effusion. No pleural effusion. [facility] [place] [address] 2 D/M-MODE ECHOCARDIOGRAM Name: HEATHER PORTILLO Room #: 219-P [facility] IN [facility]#: [id number] Admission: 10/05/20 Attend Phys: Jean Lozada MD Discharge: Date of : 41 Report #: [id number] <Conclusion> Left ventricle is grossly normal size. Mild concentric left ventricular hypertrophy. LVEF is 55-60%. Left atrium is at the upper limits of normal. The Aortic valve is sclerotic. Mild aortic regurgitation. There is mitral annular calcification. Mild to moderate mitral regurgitation. Tricuspid valve is not well visualized. Mild to moderate tricuspid regurgitation. Pulmonic valve is not well visualized. Aortic root is normal in size. Ascending aorta is normal in caliber. No pericardial effusion. No pleural effusion. <ELECTRONICALLY SIGNED> By: Mark Meier MD 10/07/201709 09 09 Mark Meier MD /INF
[2020-10-08 03:49] VITALS: BP 168/87
[2020-10-08 05:36] LABS: HEMATOCRIT 39.6 % (37.0-47.0); HEMOGLOBIN 13.2 gm/dL (12.0-15.0); MCH 29.8 pg (26.0-34.0); MCHC 33.3 g/dL (28.0-37.0); MCV 89.4 fL (80.0-100.0); RBC 4.42 mil/uL (4.20-5.00); RDW 15.3 % (10.5-14.5); WBC 8.2 thou/uL (4.0-11.0)
[2020-10-08 05:45] LABS: CALCIUM 9.6 mg/dL (8.5-10.1); POTASSIUM 3.4 mmol/L (3.5-5.1)
[2020-10-08 07:20] VITALS: BP 176/88
[2020-10-08] MEDS ORDERED: MULTAQ 400 MG400 MG PO (09:23)
[2020-10-08] MEDS ORDERED: LISINOPRIL-HCT1 EAC1 PO (09:23)
[2020-10-08] MEDS ORDERED: ELIQUIS5 MG PO (09:23)
[2020-10-08] MEDS ORDERED: AMLODIPINE BESY10 MG PO (09:23)
[2020-10-08 12:45] VITALS: BP 126/67
[2020-10-08 13:42] VITALS: BP 126/67
--- NOTE | 2020-10-08 14:56 | NUR ---
AAOX4. CALM, COOPERATIVE. SR PER TELE. DISCHARGING TO HOME, FOLLOWUPS WITH CARDIOLOGY. DISCHARGE INSTRUCTIONS GIVEN. SALINE LOCK DC'D. TELE PACK SECURED.
== END 2020-10-08 15:27 | disposition home or self-care (01) | DRG 682 ==
LOC: ER 19:28 → EROBS 21:08 → 2N 21:08 → EROBS 22:24 → 2N 23:07
PROVIDERS: Emergency Medicine; Nurse Practitioner Family; ADMIT Hospitalist; ATTEND Hospitalist
DX: N17.0 Acute kidney failure with tubular necrosis (principal); R65.11 Systemic inflammatory response syndrome (SIRS) of non-infectious origin with acute organ dysfunction; I47.1 Supraventricular tachycardia; I48.92 Unspecified atrial flutter; R07.9 Chest pain, unspecified; N17.9 Acute kidney failure, unspecified; N17.8 Other acute kidney failure; G47.00 Insomnia, unspecified; I25.10 Atherosclerotic heart disease of native coronary artery without angina pectoris; F32.9 Major depressive disorder, single episode, unspecified; F41.9 Anxiety disorder, unspecified; E78.5 Hyperlipidemia, unspecified; G47.33 Obstructive sleep apnea (adult) (pediatric); I10 Essential (primary) hypertension; R77.8 Other specified abnormalities of plasma proteins; Z20.822 Contact with and (suspected) exposure to COVID-19; Z90.49 Acquired absence of other specified parts of digestive tract; Z79.899 Other long term (current) drug therapy; Z88.2 Allergy status to sulfonamides; Z88.8 Allergy status to other drugs, medicaments and biological substances
CPT/HCPCS: 10081

== ENCOUNTER → 2020-11-01 | Outpatient (CLI) | payer OTHER ==
[~2020-11-01] MED LIST changes: +ELIQUIS5 MG PO; +MULTAQ 400 MG400 MG PO
== END ==
LOC: SJCVC 12:20
PROVIDERS: ATTEND Internal Medicine
DX: R94.31 Abnormal electrocardiogram [ECG] [EKG] (principal); R00.0 Tachycardia, unspecified; I48.0 Paroxysmal atrial fibrillation; I25.10 Atherosclerotic heart disease of native coronary artery without angina pectoris; I25.2 Old myocardial infarction; E78.5 Hyperlipidemia, unspecified; G47.33 Obstructive sleep apnea (adult) (pediatric); M19.90 Unspecified osteoarthritis, unspecified site; I10 Essential (primary) hypertension; Z99.89 Dependence on other enabling machines and devices; Z88.2 Allergy status to sulfonamides; Z88.5 Allergy status to narcotic agent; Z88.8 Allergy status to other drugs, medicaments and biological substances; Z79.899 Other long term (current) drug therapy; Z82.49 Family history of ischemic heart disease and other diseases of the circulatory system

== ENCOUNTER → 2021-05-06 | Outpatient (CLI) | payer OTHER | LOC: SJCVC 13:06 | PROVIDERS: ATTEND Internal Medicine | DX: R94.31 Abnormal electrocardiogram [ECG] [EKG] (principal); I48.0 Paroxysmal atrial fibrillation; E78.5 Hyperlipidemia, unspecified; G47.33 Obstructive sleep apnea (adult) (pediatric); F41.9 Anxiety disorder, unspecified; Z79.899 Other long term (current) drug therapy; Z88.2 Allergy status to sulfonamides; Z88.8 Allergy status to other drugs, medicaments and biological substances ==

== ENCOUNTER → 2021-07-01 | Outpatient (CLI) | payer OTHER | LOC: SJCVC 09:51 | PROVIDERS: ATTEND Internal Medicine | DX: E78.5 Hyperlipidemia, unspecified (principal); I48.0 Paroxysmal atrial fibrillation; G47.33 Obstructive sleep apnea (adult) (pediatric); F41.9 Anxiety disorder, unspecified; I25.10 Atherosclerotic heart disease of native coronary artery without angina pectoris; Z88.2 Allergy status to sulfonamides; Z88.8 Allergy status to other drugs, medicaments and biological substances; Z79.899 Other long term (current) drug therapy ==